=== PATIENT | female | born 1965 ===

== ENCOUNTER 2023-11-24 15:04 | Emergency (ER) | payer MEDICAID ==
[~2023-11-24] VITALS: Ht 157.5 cm; Wt 97.0 kg
[2023-11-24] MEDS: TraMADol HCL 50 MG TABLET PO ONE (17:49)
[2023-11-24] MEDS: KETOROLAC TROMETHAMINE 30 MG/ML VIAL IM ONE (18:28)
[2023-11-24] MEDS ORDERED: TRAM50TA5 PO (19:35)
== END 2023-11-24 19:58 | disposition home or self-care (01) ==
LOC: EMS 15:04
DX: S82.891A Other fracture of right lower leg, initial encounter for closed fracture (principal); W18.49XA Other slipping, tripping and stumbling without falling, initial encounter; Y93.89 Activity, other specified; Y92.89 Other specified places as the place of occurrence of the external cause; Y99.8 Other external cause status
CPT/HCPCS: 99284; 29515; 73610; 73630; 96372; J1885